=== PATIENT | male | born 1975 | race Caucasian/White ===

== ENCOUNTER 2016-12-22 10:30 | Emergency (ER) | payer BC ==
--- NOTE | 2016-12-22 11:31 | ED ---
Influenza-Like Illness - HPI Summary HPI Summary: Pt here w/ general body symptoms and concern for return of Lyme. He noticed a red rash on his Rt thigh in early October. States he didn't think much of this but after a few days, it got sore and he developed systemic sx of general achiness, nausea, fever, fatigue. Went to ([facility]) and dx'd w/ Lyme from EM rash - provided with doxycycline x 2 weeks. [place] mostly better but not completely. Since stopping doxycycline near the end of October, sx have been lingering, sx of finger and feet tingling along with "vice like" pain of arms and legs intermittently. New onset nausea with ab pain and diarrhea since Tuesday (5 days ago). He's been having difficulty holding food and liquids down. Denies chest pain, SOB, palpitations, URI sx, ST, rash, dysuria. He states he's been avoiding ETOH altogether in an effort to feel better (was drinking a couple of days a week leading up to illness -no smoking, no drug use). reports he was pale this morning and weak when she picked him up from work as although he wanted to work he could not get through the day like this. Feels better resting on stretcher at this moment but still fatigued. NOTE: h/o mono - not sure if this feels same or not - History of Current Complaint Chief Complaint: EDGeneral Time Seen by Provider: 12/22/16 11:03 Hx Obtained From: Patient, Family/Unit Aid - - Allergy/Home Medications Allergies/Adverse Reactions: Allergies Allergy/AdvReac Type Severity Reaction Status Date / Time No Known Allergies Allergy Verified 12/22/16 10:33 Home Medications: Home Medications Ibuprofen TAB* [Advil TAB*] 400 mg PO BID 12/22/16 [History Confirmed 12/22/16] PMH/Surg Hx/FS Hx/Imm Hx Previously Healthy: Yes Endocrine/Hematology History: Denies: Hx Diabetes, Hx Thyroid Disease, Autoimmune Disease Cardiovascular History: Denies: Hx Congenital Heart Disease, Hx Hypertension, Hx Myocardial Infarction GI History: Reports: Hx Gastroesophageal Reflux Disease - takes PPI as needed Denies: Hx Cirrhosis, Hx Crohn's Disease, Hx Diverticulosis, Hx Gall Bladder Disease, Hx Gastrointestinal Bleed, Hx Hiatal Hernia, Hx Irritable Bowel, Hx Ulcer Musculoskeletal History: Denies: Hx Arthritis - Immunization History Immunizations Up to Date: Yes Infectious Disease History: No Infectious Disease History: Denies: Hx Human Immunodeficiency Virus (HIV), Hx of Known/Suspected MRSA, Traveled Outside the [place] in Last 30 Days - Family History Known Family History: Positive: None - Social History Occupation: Employed Full-time - chef assistant Lives: With Family Alcohol Use: Occasionally Hx Substance Use: No Substance Use Type: Reports: None Hx Tobacco Use: No Smoking Status (MU): Never Smoked Tobacco Review of Systems Constitutional: Other - see HPI Eyes: Negative Negative: Photophobia, Blurred Vision, Diplopia ENT: Negative Negative: Sore Throat, Ear Ache, Nasal Discharge Cardiovascular: Negative Negative: Palpitations, Chest Pain Respiratory: Negative Negative: Shortness Of Breath, Cough Positive: Abdominal Pain, Vomiting, Diarrhea, Nausea Genitourinary: Negative Musculoskeletal: Other - see HPI Skin: Other - see HPI Neurological: Other - see HPI Psychological: Normal All Other Systems Reviewed And Are Negative: Yes Physical Exam Triage Information Reviewed: Yes Vital Signs On Initial Exam: Initial Vitals Temp Pulse Resp BP Pulse Ox 98.4 F 74 16 137/88 99 12/22/16 10:33 12/22/16 10:33 12/22/16 10:33 12/22/16 10:33 12/22/16 10:33 Vital Signs Reviewed: Yes Appearance: Positive: No Pain Distress, Well-Nourished, Ill-Appearing - appears mildly fatigued, somewhat pale Skin: Positive: Warm, Dry - no rash observed in new or previous location Head/Face: Positive: Normal Head/Face Inspection Eyes: Positive: Normal, EOMI, AMY, Conjunctiva Clear ENT: Positive: Normal ENT inspection, Hearing grossly normal, Pharynx normal, TMs normal. Negative: Nasal congestion, Nasal drainage, Tonsillar swelling, Tonsillar exudate Neck: Positive: Supple, Nontender, No Lymphadenopathy Respiratory/Lung Sounds: Positive: Clear to Auscultation, Breath Sounds Present. Negative: Rales, Rhonchi, Wheezes Cardiovascular: Positive: Normal, RRR, Pulses are Symmetrical in both Upper and Lower Extremities Abdomen Description: Positive: Nontender, No Organomegaly, Soft Bowel Sounds: Positive: Present Musculoskeletal: Positive: Normal, Strength/ROM Intact Neurological: Positive: Normal, Sensory/Motor Intact, Alert, Oriented to Person Place, Time, CN Intact II-III, Reflexes Intact Psychiatric: Positive: Normal Diagnostics - Vital Signs Vital Signs Temp Pulse Resp BP Pulse Ox 12/22/16 11:00 66 14 97 12/22/16 10:58 99.0 F 63 16 135/79 96 12/22/16 10:56 67 128/72 96 12/22/16 10:55 68 98 12/22/16 10:33 98.4 F 74 16 137/88 99 - Laboratory Result Diagrams: 12/22/16 12:17 12/22/16 12:17 Lab Statement: Any lab studies that have been ordered have been reviewed, and results considered in the medical decision making process. Flu Symptom Course/Dx - Course Course Of Treatment: Pt presents w/ general sx of weakness, myalgias, fatigue, nausea, ab pain and diarrhea. His physical exam is unremarkable for ab tenderness and labs are WNL. Given pt's hx, suspect he has return of Lyme from initial infection in October. Will restart doxycycline and have him rest until seen by Dr. Carbone. Lyme test initated today. Discussed danger s/sx of when to return to ED. Pt and agree w/ plan. - Diagnoses Provider Diagnoses: Lyme disease, unspecified Discharge - Discharge Plan Condition: Stable Disposition: HOME Prescriptions: DOXYcycline CAP(*) [DOXYcycline 100MG CAP(*)] 100 mg PO BID #42 cap Ibuprofen TAB* [Motrin TAB* 600 MG] 600 mg PO Q6H PRN #20 tab PRN Reason: Pain Ondansetron ODT TAB* [Zofran 4 MG Odt TAB*] 4 mg PO Q8H PRN #10 tab.odt PRN Reason: Nausea Patient Education Materials: Lyme Disease (ED) Referrals: Harsh Felipe MD [Primary Care Provider] - Jose VICTOR,Mega Suresh [Medical Doctor] - Additional Instructions: You appear to have return of clinically diagnosed Lyme disease after an Erythema Migrans rash was identified in October. Restart doxycycline and take ibuprofen as needed for pain. You were also provided with zofran for nausea in an effort to stay hydrated. Follow-up with Dr. Carbone this week - call today to schedule an appointment. *If you develop shortness of breath, chest pain, syncope, return to ED
[2016-12-22] MEDS ORDERED: NS 0.9% 1000 ML* 1,000 ML IV ONE (11:39)
[2016-12-22] MEDS ORDERED: Ondansetron INJ* 2 MG/ML VIAL IV ONE (11:39)
[2016-12-22] MEDS ORDERED: Morphine INJ* 4 MG/ML 1 ML SYRINGE IV ONE (12:27)
[2016-12-22 12:43] LABS: Hematocrit 46 % (42-52); Hemoglobin 16.1 g/dl (14.0-18.0); Mean Corpuscular HGB Conc 36 g/dl (31-36); Mean Corpuscular Hemoglobin 31 pg (27-31); Mean Corpuscular Volume 87 fL (80-94); Mean Platelet Volume 8 um3 (7.4-10.4); Red Blood Count 5.23 10^6/ul (4.0-5.4); Red Cell Distribution Width 13 % (10.5-15); White Blood Count 5.2 10^3/ul (3.5-10.8)
[2016-12-22 13:01] LABS: BUN/Creatinine Ratio 10.3 (8-20); C Reactive Protein 9.52 mg/L (< 5.00); Calcium 9.1 mg/dL (8.6-10.3); EGFR African American 124.4 (>60); EGFR Non-African American 96.7 (>60); Globulin 2.9 g/dL (2-4); Potassium 3.7 mmol/L (3.5-5.0); Total Bilirubin 0.5 mg/dL (0.2-1.0); Total Protein 6.9 g/dL (6.4-8.9)
[2016-12-22 13:16] LABS: Mono Internal Control QC Line Present
[2016-12-22] MEDS ORDERED: DOXYcycline IV* 100 MG in NS 0.9% 250 ML* 250 ML IVPB ONE (14:01)
[2016-12-22] MEDS ORDERED: NS 0.9% 250 ML* 250 ML ONE (14:16)
[2016-12-22 15:27] LABS: Urine Bilirubin Negative (Negative); Urine Glucose Negative (Negative); Urine Nitrite Negative (Negative)
[2016-12-22] MEDS ORDERED: Ketorolac INJ* 30 MG/ML 1 ML VIAL IV PUSH ONE (16:42)
[2016-12-22] MEDS ORDERED: Ketorolac INJ* 30 MG/ML 1 ML VIAL ONE (16:43)
[2016-12-22 17:00] VITALS: BP 111/74
[2016-12-23 15:08] LABS: Lyme Disease IgG Ab WB Negative (Negative)
== END 2016-12-22 16:58 | disposition home or self-care (01) ==
LOC: ED 10:30
DX: A69.20 Lyme disease, unspecified (principal); R10.9 Unspecified abdominal pain; R11.2 Nausea with vomiting, unspecified; R19.7 Diarrhea, unspecified; H53.8 Other visual disturbances
CPT/HCPCS: 36415; 80053; 81003; 82150; 82607; 83605; 83690; 83735; 85025; 86140; 86308; 86617; 93005; 96374; 96375; 99285; J1885; J2270; J2405

== ENCOUNTER 2019-02-27 10:39 | Emergency (ER) | payer BC ==
[2019-02-27 11:13] VITALS: BP 168/106
--- NOTE | 2019-02-27 11:42 | UC ---
Skin Complaint HPI - HPI Summary HPI Summary: 43-year-old male who had a tick embedded in his right upper arm since yesterday after walking in the [place] with this dog's. He has had Lyme disease in the past. He was able to remove most of the tick but he thinks a piece may still be embedded. He states the tick was not engorged - History of Current Complaint Chief Complaint: UCGeneralIllness Time Seen by Provider: 02/27/19 11:23 Stated Complaint: TICK BITE Hx Obtained From: Patient Onset/Duration: Gradual Onset Skin Exposure Onset/Duration: Hours Ago Timing: Constant Onset Severity: Mild Current Severity: Mild Pain Intensity: 0 Location: Other Character: Redness - Back of right upper arm Aggravating Factor(s): Nothing Alleviating Factor(s): Nothing Associated Signs & Symptoms: Positive: Negative Related History: Insect Bite/Sting - Allergy/Home Medications Allergies/Adverse Reactions: Allergies Allergy/AdvReac Type Severity Reaction Status Date / Time No Known Allergies Allergy Verified 02/27/19 11:07 PMH/Surg Hx/FS Hx/Imm Hx - Additional Past Medical History Additional PMH: History of Lyme disease Previously Healthy: Yes - Surgical History Surgical History: None Surgery Procedure, Year, and Place: L wrist fx - Family History Known Family History: Positive: None - Social History Lives: With Family Alcohol Use: Occasionally Substance Use Type: None Smoking Status (MU): Never Smoked Tobacco Review of Systems All Other Systems Reviewed And Are Negative: Yes Skin: Positive: Other - Patient states tick has been embedded since yesterday and he removed part of it. He thinks another part is embedded. Is Patient Immunocompromised?: No Physical Exam Triage Information Reviewed: Yes Appearance: Well-Appearing, No Pain Distress, Well-Nourished Vital Signs: Initial Vital Signs Temp 98.4 F 02/27/19 11:08 Pulse 65 02/27/19 11:08 Resp 14 02/27/19 11:08 BP 168/106 02/27/19 11:08 Pulse Ox 99 02/27/19 11:08 Vital Signs Reviewed: Yes Musculoskeletal Exam: Normal Neurological Exam: Normal Psychological Exam: Normal Skin: Positive: Other - The area of concern on the right upper posterior arm has a scab over it. I was able to remove the scab using an 18-gauge sterile needle and there does not appear to be any piece of tick embedded however there may be a piece on the scab. Course/Dx - Course Course Of Treatment: Patient is comfortable here. He declines prophylactic doxycycline. He will follow-up with his primary care provider as needed if any signs Lyme disease. - Diagnoses Provider Diagnosis: Tick bite Discharge ED - Sign-Out/Discharge Documenting (check all that apply): Patient Departure All imaging exams completed and their final reports reviewed: No Studies - Discharge Plan Condition: Good Disposition: HOME Patient Education Materials: Tick Bite (ED) Referrals: Harsh Felipe MD [Primary Care Provider] - Additional Instructions: Follow-up with your primary care provider if you develop any fever, chills, body aches or rashes. - Billing Disposition and Condition Condition: GOOD Disposition: Home
== END 2019-02-27 11:58 | disposition home or self-care (01) ==
LOC: UCEAST 10:39
DX: S40.861A Insect bite (nonvenomous) of right upper arm, initial encounter (principal); W57.XXXA Bitten or stung by nonvenomous insect and other nonvenomous arthropods, initial encounter; Y93.K1 Activity, walking an animal; Y92.9 Unspecified place or not applicable
CPT/HCPCS: 99211; G0463

== ENCOUNTER 2019-04-06 14:21 | Emergency (ER) | payer BC ==
[2019-04-06] MEDS ORDERED: Tetracaine 0.5% OPTH.SOL 4 ML* 1 DROP BTL RIGHT EYE ONE (14:33)
[2019-04-06 14:41] VITALS: BP 160/114
[2019-04-06] MEDS ORDERED: Fluorescein Sodium TOPICAL* 1 MG TEST STRIP OPHTHALMIC ONE (15:01)
--- NOTE | 2019-04-06 15:18 | ED ---
Throat Pain/Nasal Congestion - HPI Summary HPI Summary: 43 year old male presents with presents with scratch to left eye. States he was that this scratching his left eye. He denies any change in vision. States the pain was very severe until he was given the tetracaine. Does not wear contacts or glasses. Has no medical history. His tetanus is up-to-date. Is very photophobic. - History of Current Complaint Chief Complaint: UCEye Time Seen by Provider: 04/06/19 15:00 - Allergies/Home Medications Allergies/Adverse Reactions: Allergies Allergy/AdvReac Type Severity Reaction Status Date / Time No Known Allergies Allergy Verified 02/27/19 11:07 PMH/Surg Hx/FS Hx/Imm Hx Endocrine/Hematology History: Denies: Hx Diabetes, Hx Thyroid Disease Cardiovascular History: Denies: Hx Congenital Heart Disease, Hx Hypertension, Hx Myocardial Infarction GI History: Reports: Hx Gastroesophageal Reflux Disease - takes PPI as needed Denies: Hx Cirrhosis, Hx Crohn's Disease, Hx Diverticulosis, Hx Gall Bladder Disease, Hx Gastrointestinal Bleed, Hx Hiatal Hernia, Hx Irritable Bowel, Hx Ulcer Musculoskeletal History: Denies: Hx Arthritis - Surgical History Surgery Procedure, Year, and Place: L wrist fx Infectious Disease History: No Infectious Disease History: Denies: Hx Human Immunodeficiency Virus (HIV), Hx of Known/Suspected MRSA, Traveled Outside the [place] in Last 30 Days - Family History Known Family History: Positive: None - Social History Alcohol Use: Rare Hx Substance Use: No Substance Use Type: Reports: None Hx Tobacco Use: No Smoking Status (MU): Never Smoked Tobacco Review of Systems Negative: Fever Positive: Other - scratch to left eye Negative: Chest Pain Negative: Shortness Of Breath All Other Systems Reviewed And Are Negative: Yes Physical Exam Triage Information Reviewed: Yes Vital Signs On Initial Exam: Initial Vitals Temp Pulse Resp BP Pulse Ox 97.7 F 74 18 160/114 100 04/06/19 14:39 04/06/19 14:39 04/06/19 14:39 04/06/19 14:39 04/06/19 14:39 Vital Signs Reviewed: Yes Appearance: Positive: Well-Appearing Skin: Positive: Warm, Dry Head/Face: Positive: Normal Head/Face Inspection Eyes: Positive: EOMI, AMY, Conjunctiva Inflammed, Other: - 4mm uptake across lower half of left cornea ENT: Positive: Pharynx normal, TMs normal Respiratory/Lung Sounds: Positive: Clear to Auscultation, Breath Sounds Present Cardiovascular: Positive: Normal, RRR Musculoskeletal: Positive: Normal Neurological: Positive: Normal Psychiatric: Positive: Normal Diagnostics - Vital Signs Vital Signs Temp Pulse Resp BP Pulse Ox 04/06/19 14:39 97.7 F 74 18 160/114 100 - Laboratory Lab Statement: Any lab studies that have been ordered have been reviewed, and results considered in the medical decision making process. EENT Course/Dx - Course Course Of Treatment: 43 year old male presents with presents with scratch to left eye. States he was that this scratching his left eye. He denies any change in vision. States the pain was very severe until he was given the tetracaine. Does not wear contacts or glasses. Has no medical history. His tetanus is up-to-date. Is very photophobic. On exam has 4 mm uptake on fluorescein exam to bottom half of left cornea. Will treat with Polytrim. Gave short course of pain medication. Will have follow-up ophthalmology. Patient understands and agrees plan. - Differential Diagnoses Differential Diagnoses: Conjunctivitis, Corneal Abrasion, Foreign Body - Diagnoses Provider Diagnoses: Corneal abrasion Discharge ED - Sign-Out/Discharge Documenting (check all that apply): Patient Departure All imaging exams completed and their final reports reviewed: No Studies - Discharge Plan Condition: Good Disposition: HOME Prescriptions: HYDROcodone/ACETAMIN 5-325 MG* [[place] 5-325 TAB*] 1 tab PO Q6H PRN #8 tab MDD 4 PRN Reason: Pain - Moderate Patient Education Materials: Corneal Abrasion (ED) Referrals: Harsh Felipe MD [Primary Care Provider] - Brayan Rand MD [Medical Doctor] - Additional Instructions: Place 1 drop in eye 4 times a day for 5 days Use artificial tears or saline to rinse eye for symptomatic relief Take Tylenol or ibuprofen for pain, use norco every 6 hours for break through pain Follow up with ophthalmology Return to ED if develop any new or worsening symptoms - Billing Disposition and Condition Condition: GOOD Disposition: Home
[2019-04-06] MEDS ORDERED: Polymyx/Trimethoprim OPTH* 10 ML BTL LEFT EYE ONE (15:19)
== END 2019-04-06 15:45 | disposition home or self-care (01) ==
LOC: UCEAST 14:21
DX: S05.02XA Injury of conjunctiva and corneal abrasion without foreign body, left eye, initial encounter (principal); X58.XXXA Exposure to other specified factors, initial encounter; Y92.9 Unspecified place or not applicable
CPT/HCPCS: 99213; A9270-GY; G0463